=== PATIENT | male | born 1955 | race Caucasian/White ===

== ENCOUNTER 2020-04-24 21:38 | Inpatient (IN) | payer OTHER, MEDICARE ==
[2020-04-24] MEDS ORDERED: SODIUM CHLORIDE 0.9% 500 ML INFUS.BAG IV ONE (23:24)
[2020-04-24] MEDS ORDERED: CLINDAMYCIN 600MG PREMIX IVPB 600 MG/50 ML BAG IVPB ONE (23:30)
[2020-04-25 01:13] LABS: BASO % 0.5 % (0-2.0); EOS % 2.6 % (0-4.5); HEMATOCRIT 36.1 % (35.4-49); HEMOGLOBIN 12.2 GM/dL (11.7-16.9); LYMPH % 13.4 % (8-40); MCH 32.1 pg (25.7-33.7); MCHC 33.9 g/dl (32.0-35.9); MEAN CELL VOLUME 94.7 fl (80-96); MEAN PLT VOLUME 7.1 fl (7.5-11.1); MONO % 8.8 % (3.8-10.2); NEUT % 74.7 % (42.8-82.8); PLATELET COUNT 284 K/MM3 (134-434); RBC 3.82 M/mm3 (4.00-5.60); WHITE BLOOD COUNT 7.2 K/mm3 (4.0-10.0)
[2020-04-25 01:49] LABS: CHLORIDE 104 mmol/L (98-107); POTASSIUM 5.1 mmol/L (3.5-5.1); SODIUM 139 mmol/L (136-145)
[2020-04-25 01:53] LABS: ALBUMIN 3.9 g/dl (3.4-5.0); ANION GAP 7 MMOL/L (8-16); BLOOD UREA NITROGEN 18.2 mg/dL (7-18); CALCIUM 8.8 mg/dL (8.5-10.1); CO2 28 mmol/L (21-32); GLUCOSE,RANDOM 85 mg/dL (74-106)
[2020-04-25 01:56] LABS: CREATININE 1.1 mg/dL (0.55-1.3); SGOT/AST 18 U/L (15-37); SGPT/ALT 19 U/L (13-61)
[2020-04-25 01:58] LABS: BILIRUBIN,TOTAL 0.7 mg/dL (0.2-1); TOT PROT 8.2 g/dl (6.4-8.2)
[2020-04-25 01:59] LABS: ALK PHOS 69 U/L (45-117)
[2020-04-25 07:47] LABS: PHENCYCLIDINE,URINE NEGATIVE ng/ml (CUTOFF=25)
[2020-04-25 07:48] LABS: COCAINE, UR NEGATIVE ng/ml (CUTOFF=300); URINE BARBITURATES NEGATIVE ng/ml (CUTOFF=200); URINE BENZODIAZEPINES NEGATIVE ng/ml (CUTOFF=200)
[2020-04-25 07:49] LABS: URINE AMPHETAMINES NEGATIVE ng/ml (CUTOFF=500)
[2020-04-25 08:11] LABS: URINE APPEARANCE CLEAR; URINE BILIRUBIN NEGATIVE (NEGATIVE); URINE COLOR YELLOW; URINE GLUCOSE (UA) NEGATIVE (NEGATIVE); URINE KETONE TRACE (NEGATIVE); URINE LEUK ESTERASE NEGATIVE (NEGATIVE); URINE NITRITE NEGATIVE (NEGATIVE); URINE PROTEIN TRACE (NEGATIVE)
[2020-04-25] MEDS ORDERED: ENOXAPARIN NA (PORCINE) 40 MG/0.4 ML DISP.SYRIN SQ ONE (09:08)
[2020-04-25] MEDS ORDERED: CLINDAMYCIN 600MG PREMIX IVPB 600 MG/50 ML BAG IVPB ONE ×2 (09:08)
[2020-04-25] MEDS: ENOXAPARIN NA (PORCINE) 40 MG/0.4 ML DISP.SYRIN SQ SCH (09:17)
[2020-04-25] MEDS: CLINDAMYCIN 600MG PREMIX IVPB 600 MG/50 ML BAG IVPB SCH ×2 (09:17→18:10)
[2020-04-25 09:39] LABS: OPIATES, URI POSITIVE ng/ml (CUTOFF=300)
[2020-04-25 09:40] LABS: METHADONE, UR POSITIVE ng/ml (CUTOFF=300)
[2020-04-25] MEDS ORDERED: METHADONE HCL 40 MG DISPERSABLE TABLET PO SCH (12:00)
[2020-04-25] MEDS ORDERED: METHADONE HCL 10 MG TABLET ONE (12:34)
[2020-04-25] MEDS ORDERED: METHADONE HCL 40 MG DISPERSABLE TABLET ONE (12:34)
[2020-04-25] MEDS: METHADONE 40 MG, METHADONE 30 MG PO SCH (12:42)
[2020-04-25 17:15] VITALS: BMI 37.2
[2020-04-25 18:10] LABS: CHOLESTEROL 149 mg/dL (50-200)
[2020-04-25 18:11] LABS: TRIGLYCERIDES 77 mg/dL (0-150)
[2020-04-25 18:12] LABS: LDL CHOLESTEROL (ONLY SJRH) 70 mg/dL (5-100)
[2020-04-25 18:13] LABS: HDL CHOLESTEROL 66 mg/dL (40-60)
[2020-04-26] MEDS: CLINDAMYCIN 600MG PREMIX IVPB 600 MG/50 ML BAG IVPB SCH ×3 (01:07→18:01)
[2020-04-26] MEDS ORDERED: METHADONE HCL 40 MG DISPERSABLE TABLET ONE (05:50)
[2020-04-26] MEDS ORDERED: METHADONE HCL 10 MG TABLET ONE (05:51)
[2020-04-26] MEDS: METHADONE 40 MG, METHADONE 30 MG PO SCH (05:52)
[2020-04-26 08:22] LABS: BASO % 2.9 % (0-2.0); EOS % 5.3 % (0-4.5); HEMATOCRIT 37.5 % (35.4-49); HEMOGLOBIN 11.9 GM/dl (11.7-16.9); LYMPH % 24.2 % (8-40); MCH 30.5 pg (25.7-33.7); MCHC 31.8 g/dl (32.0-35.9); MEAN CELL VOLUME 95.9 fl (80-96); MEAN PLT VOLUME 7.6 fl (7.5-11.1); MONO % 12.7 % (3.8-10.2); NEUT % 54.9 % (42.8-82.8); PLATELET COUNT 240 K/MM3 (134-434); RBC 3.91 M/mm3 (4.00-5.60); RDW 13.1 % (11.9-15.9); WHITE BLOOD COUNT 4.9 K/mm3 (4.0-10.8)
[2020-04-26 08:33] LABS: ALBUMIN 3.6 g/dl (3.4-5.0); BILIRUBIN,TOTAL 0.9 mg/dl (0.2-1); CALCIUM 8.6 mg/dl (8.5-10); CREATININE 0.9 mg/dl (0.55-1.3); PHOSPHOROUS 3.2 mg/dl (2.5-4.9); POTASSIUM 4.7 mmol/L (3.5-5.1); TOT PROT 7.2 g/dl (6.4-8.2)
[2020-04-26] MEDS: ENOXAPARIN NA (PORCINE) 40 MG/0.4 ML DISP.SYRIN SQ SCH (09:58)
[2020-04-26] MEDS ORDERED: ALBUTEROL SO4 HFA INHALER IH PRN (12:32)
[2020-04-26] MEDS: amLODIPine BESYLATE 5 MG TABLET (FP) PO SCH (12:50)
[2020-04-26] MEDS ORDERED: diazePAM 5 MG TABLET PO ONE (14:02)
[2020-04-26] MEDS: DOCUSATE SODIUM 100 MG CAPSULE (FP) PO SCH (21:17)
[2020-04-27] MEDS: CLINDAMYCIN 600MG PREMIX IVPB 600 MG/50 ML BAG IVPB SCH ×3 (02:00→17:55)
[2020-04-27] MEDS ORDERED: METHADONE HCL 40 MG DISPERSABLE TABLET ONE (06:15)
[2020-04-27] MEDS ORDERED: METHADONE HCL 10 MG TABLET ONE (06:16)
[2020-04-27] MEDS: METHADONE 40 MG, METHADONE 30 MG PO SCH (06:19)
[2020-04-27] MEDS: amLODIPine BESYLATE 5 MG TABLET (FP) PO SCH (09:13)
[2020-04-27] MEDS: DOCUSATE SODIUM 100 MG CAPSULE (FP) PO SCH ×2 (09:13→21:20)
[2020-04-27] MEDS: ENOXAPARIN NA (PORCINE) 40 MG/0.4 ML DISP.SYRIN SQ SCH (09:13)
[2020-04-27] MEDS: BUDESONIDE/FORMETEROL FUMARATE 80/4.5 mcg INHALER IH SCH ×2 (09:14→21:20)
[2020-04-27] MEDS: ASPIRIN COATED 81 MG TABLET.EC PO SCH (12:06)
[2020-04-28] MEDS: CLINDAMYCIN 600MG PREMIX IVPB 600 MG/50 ML BAG IVPB SCH ×2 (00:59→10:01)
[2020-04-28] MEDS ORDERED: METHADONE HCL 40 MG DISPERSABLE TABLET ONE (05:47)
[2020-04-28] MEDS ORDERED: METHADONE HCL 10 MG TABLET ONE (05:48)
[2020-04-28] MEDS: METHADONE 40 MG, METHADONE 30 MG PO SCH (06:12)
[2020-04-28] MEDS: ASPIRIN COATED 81 MG TABLET.EC PO SCH (10:01)
[2020-04-28] MEDS: amLODIPine BESYLATE 5 MG TABLET (FP) PO SCH (10:01)
[2020-04-28] MEDS: DOCUSATE SODIUM 100 MG CAPSULE (FP) PO SCH (10:01)
[2020-04-28] MEDS: ENOXAPARIN NA (PORCINE) 40 MG/0.4 ML DISP.SYRIN SQ SCH (10:02)
[2020-04-28] MEDS: BUDESONIDE/FORMETEROL FUMARATE 80/4.5 mcg INHALER IH SCH (10:02)
[2020-04-28 14:08] VITALS: BP 146/67; PULSE 70; TEMP 8.2
== END 2020-04-28 17:58 | disposition home or self-care (01) | DRG 603 ==
LOC: JER 21:38 → JERBED 23:29 → OBSVTOIN 04-25 05:08 → FM/S 04-25 16:27
PROVIDERS: ADMIT Internal Medicine; ATTEND Nurse Practitioner Acute Care
DX: L03.115 Cellulitis of right lower limb (principal); G45.9 Transient cerebral ischemic attack, unspecified; F11.20 Opioid dependence, uncomplicated; L03.116 Cellulitis of left lower limb; I10 Essential (primary) hypertension; J45.909 Unspecified asthma, uncomplicated; B19.20 Unspecified viral hepatitis C without hepatic coma; E66.9 Obesity, unspecified; Z68.37 Body mass index [BMI] 37.0-37.9, adult; F14.10 Cocaine abuse, uncomplicated; R55 Syncope and collapse
CPT/HCPCS: 36415; 70450-TC; 70551-TC; 71045-TC-FY; 71046-TC-FY; 80053; 80061; 80307; 81003; 82550; 83036; 83605; 83721; 83735; 84100; 84443; 84484; 85025; 85730; 87040; 93005; 93010; 93306-TC; 93880-TC; 93970-TC; 97116-GP; 97162-GP; 99285-25; C9803; G0378; U0003

== ENCOUNTER 2020-07-29 12:39 | Emergency (ER) | payer OTHER, MEDICARE ==
[2020-07-29 12:50] VITALS: TEMP 98; BMI 36.1
[2020-07-29 15:24] LABS: CALCIUM 9.3 mg/dL (8.5-10.1)
[2020-07-29 15:25] LABS: ALBUMIN 4.2 g/dl (3.4-5.0); BLOOD UREA NITROGEN 25.2 mg/dL (7-18)
[2020-07-29 15:28] LABS: CREATININE 0.9 mg/dL (0.55-1.3)
[2020-07-29 15:30] LABS: BILIRUBIN,TOTAL 0.6 mg/dL (0.2-1); TOT PROT 8.6 g/dl (6.4-8.2)
[2020-07-29 17:05] LABS: BASO % 0.5 % (0-2.0); EOS % 3.4 % (0-4.5); HEMATOCRIT 34.2 % (35.4-49); HEMOGLOBIN 11.5 GM/dL (11.7-16.9); LYMPH % 18.3 % (8-40); MCH 31.3 pg (25.7-33.7); MCHC 33.4 g/dl (32.0-35.9); MEAN CELL VOLUME 93.6 fl (80-96); MEAN PLT VOLUME 7.6 fl (7.5-11.1); MONO % 9.7 % (3.8-10.2); NEUT % 68.1 % (42.8-82.8); PLATELET COUNT 227 K/MM3 (134-434); RBC 3.66 M/mm3 (4.00-5.60); RDW 13.7 % (11.9-15.9); WHITE BLOOD COUNT 5.7 K/mm3 (4.0-10.0)
[2020-07-29 17:59] LABS: CALCIUM 8.9 mg/dL (8.5-10.1)
[2020-07-29 18:01] LABS: BLOOD UREA NITROGEN 24.3 mg/dL (7-18)
[2020-07-29 18:03] LABS: CREATININE 0.9 mg/dL (0.55-1.3)
[2020-07-29 18:05] LABS: BILIRUBIN,TOTAL 0.5 mg/dL (0.2-1)
[2020-07-29 18:22] VITALS: BP 115/72; PULSE 75
== END 2020-07-29 18:20 | disposition home or self-care (01) ==
LOC: JER 12:39
DX: L03.116 Cellulitis of left lower limb (principal); L03.115 Cellulitis of right lower limb
CPT/HCPCS: 36415; 80053; 85025; 93970-TC; 99284-25

== ENCOUNTER 2020-11-06 16:20 | Emergency (ER) | payer OTHER, MEDICARE ==
[2020-11-06 16:25] VITALS: BP 135/81; PULSE 79; TEMP 98; BMI 36.9
[2020-11-06] MEDS ORDERED: CEFAZOLIN 1 GM in DEXTROSE 5%-WATER - 50 ML IVPB ONE (17:11)
[2020-11-06 18:29] LABS: BILIRUBIN,TOTAL 0.9 mg/dl (0.2-1); CALCIUM 8.7 mg/dl (8.5-10); CREATININE 0.9 mg/dl (0.55-1.3); TOT PROT 7.7 g/dl (6.4-8.2)
[2020-11-06 18:34] LABS: EOS % 2.4 % (0-4.5); HEMATOCRIT 34.6 % (35.4-49); HEMOGLOBIN 11.3 GM/dl (11.7-16.9); LYMPH % 16.5 % (8-40); MCH 30.9 pg (25.7-33.7); MCHC 32.5 g/dl (32.0-35.9); MEAN CELL VOLUME 94.9 fl (80-96); MEAN PLT VOLUME 7.3 fl (7.5-11.1); NEUT % 66.1 % (42.8-82.8); PLATELET COUNT 209 10^3/uL (134-434); RBC 3.65 M/mm3 (4.00-5.60); RDW 12.3 % (11.9-15.9); WHITE BLOOD COUNT 5.6 K/mm3 (4.0-10.8)
[2020-11-06] MEDS ORDERED: ceFAZolin SODIUM 1 GM VIAL ONE (18:41)
[2020-11-06] MEDS ORDERED: CEPHALEXIN MONOHYDRATE 500 MG CAPSULE (UD) PO ONE (19:06)
[2020-11-06] MEDS ORDERED: CEPHALEXIN MONOHYDRATE 500 MG CAPSULE (UD) ONE (19:22)
== END 2020-11-06 19:52 | disposition home or self-care (01) ==
LOC: FER 16:20
DX: M94.0 Chondrocostal junction syndrome [Tietze] (principal); L03.115 Cellulitis of right lower limb
CPT/HCPCS: 36415; 71101-TC-LT-FY; 80053; 83690; 85025; 87040; 99284-25